=== PATIENT | female | born 1965 | race Caucasian/White ===

== ENCOUNTER → 2021-02-07 | Outpatient (CLI) | payer BC | LOC: LAB SHORT 14:08 → LAB 14:08 | DX: H00.11 Chalazion right upper eyelid (principal) | CPT/HCPCS: 88305 ==

== ENCOUNTER 2025-01-03 13:16 | Emergency (ER) | payer OTHER, BC ==
[~2025-01-03] VITALS: Ht 162.6 cm; Wt 108.9 kg
[2025-01-03 13:36] VITALS: BP 183/105
[2025-01-03] MEDS ORDERED: Ondansetron 4 MG SoluTab SL ONE ×2 (13:50→16:20)
[2025-01-03] MEDS ORDERED: RX Prepack 6 Tabs Oxycodone 5mg UD ONE (18:10)
[2025-01-03] MEDS ORDERED: RX Prepack 2 Tabs Ondansetron ODT 4MG UD ONE (18:10)
[2025-01-03] MEDS ORDERED: Percocet 5-3251 EACH PO (18:12)
[2025-01-03] MEDS ORDERED: CYCL10 PO (18:12)
[2025-01-03] MEDS ORDERED: LIDO700A20 TOP (18:12)
[2025-01-03] MEDS ORDERED: ONDA4ODT MM (18:12)
== END 2025-01-03 18:24 | disposition home or self-care (01) ==
LOC: ER 13:16
DX: S29.9XXA Unspecified injury of thorax, initial encounter (principal); V89.2XXA Person injured in unspecified motor-vehicle accident, traffic, initial encounter; M48.061 Spinal stenosis, lumbar region without neurogenic claudication; D68.2 Hereditary deficiency of other clotting factors; Z79.01 Long term (current) use of anticoagulants
CPT/HCPCS: 72128; 72131; 99284-25; A9270